=== PATIENT | male | born 1935 | race Caucasian/White ===

== ENCOUNTER → 2016-04-19 | Outpatient (CLI) | payer MEDICARE, OTHER ==
[~2016-04-19] MED LIST: ASPIRIN LO-DOSE81 MG PO; BYSTOLIC2.5 MG PO; CARAFATE1 GM PO; CARDURA2 MG PO; COLACE100 MG PO; COUMADIN ** IA5 MG PO; DEMADEX20 M1 PO; DOXYCYCLINE100 MG PO; FLOMAX0.4 MG PO; FLONASE 50 MCG/16 GM NOSE; GLUCOPHAGE500 MG PO; LIPITOR40 MG PO; MILK OF MA400 MG/5 M PO; NORCO 5-325 TA1 EACH PO; NORVASC2.5 MG PO; OXYGEN M-15 INH; PRILOSEC20 MG PO; TYLENOL EXTRA500 MG PO; ZANTAC (NON-FO150 MG PO; ZESTRIL2.5 MG PO; ZOFRAN4 MG PO; ZOLOFT100 MG PO
== END | disposition disaster alternative care site (69) ==
LOC: GRAD 10:07
DX: M54.9 Dorsalgia, unspecified (principal)

== ENCOUNTER 2016-05-05 17:24 | Emergency (ER) | payer MEDICARE, OTHER ==
--- NOTE | ~2016-05-05 | ER ---
PATIENT'S NAME: MILLICENT BOSWELL [facility] AGE: 81 Y [address] ROOM: [place] [address] LOCATION: ED ADMIT DATE: 05/05/2016 ER/Outpatient Report DISCHARGE DATE: 05/05/2016 FAMILY PHYSICIAN: Shad Prescott MD ATTENDING PHYSICIAN: Shad Bauer Time of Arrival: 1730 hours. Time of Exam: 1730 hours. CHIEF COMPLAINT: Heart fluttering, nausea, headache. HISTORY OF PRESENT ILLNESS: The patient states approximately 2-3 hours prior to arrival he was working in his garage when he developed a fluttering sensation of his heart and began feeling nauseated, has not vomited. States he just has a generalized headache. Does not have any chest pain with this, just feels like his heart is fluttering and not beating correct. Reports he has had a dry cough. Has been checking his blood pressure at home and has noted that it is a little bit higher than what it had been. He states that he saw a professional services consultant in March, wore a monitor for almost 2 weeks he states and at that time, he said everything checked out okay. He states they did an echocardiogram of his heart and that was all normal also. States last time he had this fluttering, it only lasted for about 3 days while he was wearing the monitor, then it stopped. According to his past medical history, he was having some PVCs when he felt the fluttering in the past. ALLERGIES: PENICILLIN AND DARVOCET. CURRENT MEDICATIONS: On his chart and reviewed by me. PAST MEDICAL HISTORY: Heart disease, DVT, kidney stone, and depression. PAST SURGERIES: Left shoulder surgery. SOCIAL HISTORY: He lives alone. He is . Denies use of tobacco, drugs, or alcohol. REVIEW OF SYSTEMS: All negative other than those mentioned in the HPI. PATIENT'S NAME: MILLICENT BOSWELL [facility] AGE: 81 Y [address] ROOM: [place] [address] LOCATION: [facility] ADMIT DATE: 05/05/2016 ER/Outpatient Report DISCHARGE DATE: 05/05/2016 FAMILY PHYSICIAN: Shad Prescott MD ATTENDING PHYSICIAN: Shad Bauer PHYSICAL EXAMINATION: VITAL SIGNS: He states he is 5 feet 7 inches. He weighed 112.4 kg. Blood pressure 168/68, pulse 52, respirations 16, temperature of 98.7, and O2 saturation 94% on room air. GENERAL: He is awake, alert, and oriented x4. SKIN: [place], warm, and dry. LUNGS: Respirations are even and nonlabored. Lung sounds are clear throughout. HEART: Regular rate and rhythm. It is bradycardic. ABDOMEN: Round, soft. Bowel sounds are present. No peripheral edema noted. EMERGENCY ROOM COURSE: Saline lock was initiated. Lab work was drawn. CBC is within normal limits. His INR was 2.1. He is on Coumadin. Chem panel: Sodium is 142, potassium is 3.8, chloride is 104, GFR is 49. Magnesium was 2. CPK is 40. CK-MB is 0.7. Troponin was less than 0.040. Free T4 was 0.9, TSH of 2.12. EKG shows sinus bradycardia, has poor R-wave progression. He was monitored. Vital signs remained stable. He was given Tylenol 1000 mg for the headache with minimal relief. CT of the head was completed, radiologist reports no acute findings. He remained in a sinus bessy/sinus rhythm. Repeat cardiac enzymes at 2 hours are negative. Repeat EKG is unchanged. IMPRESSION: Chest pain, fluttering. PLAN: Home. Rest. Continue his current medications. The patient was reviewed with Dr. Mccallum. I encouraged the patient to follow up with his professional services consultant within the next 2-3 days or his primary provider. He verbalized understanding. TAE COREAS APRN FOR MD LOPEZ HAUSER/jina /[id number] d: 05/06/162 t: 05/11/16 1232, OUTPATIENT REPORT
[~2016-05-05 17:24] MED LIST changes: -CARAFATE1 GM PO; -COLACE100 MG PO; -FLOMAX0.4 MG PO; -GLUCOPHAGE500 MG PO; -MILK OF MA400 MG/5 M PO; -NORCO 5-325 TA1 EACH PO; -OXYGEN M-15 INH; -PRILOSEC20 MG PO; -ZANTAC (NON-FO150 MG PO; -ZESTRIL2.5 MG PO
[2016-05-05 18:03] LABS: BASOPHIL # 0.1 K/uL (0.0-0.2); BASOPHIL % 0.7 %; EOSINOPHIL # 0.3 K/uL (0.0-0.5); EOSINOPHIL % 3.6 %; HEMATOCRIT 41.3 % (33.0-50.0); IMMATURE GRANULOCYTE % 0.3 %; LYMPHOCYTE # 1.7 K/uL (0.8-4.0); LYMPHOCYTE % 24.1 %; MCH 31.9 pg (27.0-34.0); MCHC 33.9 gm/dL (32.0-36.5); MCV 94.1 fl (83.0-98.0); MONOCYTE # 0.8 K/uL (0.0-1.0); MONOCYTE % 11.4 %; MPV 10.9 fl (9.4-12.4); NEUTROPHIL # (ANC) 4.1 K/uL (1.4-9.0); NEUTROPHIL % 59.9 %; NRBC % 0 /100WBC (0-0.00); PLATELET COUNT 125 K/uL (150-450); RBC 4.39 M/uL (3.50-5.50); RDW-CV 12.8 % (11.9-14.6); WBC 6.9 K/uL (4.0-11.0)
[2016-05-05 18:11] LABS: PTT 35 SECONDS (25-32)
[2016-05-05 18:13] LABS: INR - (THERAPEUTIC) 2.1 (0.9-1.1); PROTIME 23.7 SECONDS (9.6-11.1)
[2016-05-05 18:23] LABS: ALBUMIN 3.6 gm/dL (3.5-5.0); ALK PHOS 90 IU/L (33-138); ALT 27 IU/L (12-78); ANION GAP 12.8 (10.0-19.0); AST 22 IU/L (10-40); BLOOD UREA NITROGEN 24 mg/dL (6-24); CALCIUM 8.1 mg/dL (8.5-10.5); CHLORIDE 104 mMol/L (96-110); CO2 29 mMol/L (22-32); CPK 40 IU/L (35-332); CREATININE 1.4 mg/dL (0.6-1.3); ESTIMATED GFR (MDRD EQUATION) 49; POTASSIUM 3.8 mMol/L (3.7-5.1); SODIUM 142 mMol/L (135-145); TOTAL BILIRUBIN 0.4 mg/dL (0.0-1.5); TOTAL PROTEIN 6.5 g/dL (6.0-8.4)
[2016-05-05 20:14] LABS: CPK 38 IU/L (35-332)
[2016-05-28] MEDS ORDERED: OXYGEN M-15 INH (13:55)
[2016-05-28] MEDS ORDERED: PRILOSEC20 MG PO (14:08)
[2016-05-28] MEDS ORDERED: ZESTRIL2.5 MG PO (14:08)
[2016-05-28] MEDS ORDERED: ZANTAC (NON-FO150 MG PO (14:08)
[2016-05-28] MEDS ORDERED: GLUCOPHAGE500 MG PO (14:08)
[2016-09-03] MEDS ORDERED: CARAFATE1 GM PO (13:43)
[2016-09-03] MEDS ORDERED: ZOFRAN4 MG PO (13:43)
== END 2016-05-05 20:33 | disposition disaster alternative care site (69) ==
LOC: GMED 17:24
PROVIDERS: Nurse Practitioner Family
DX: I49.8 Other specified cardiac arrhythmias (principal); R07.9 Chest pain, unspecified; F32.9 Major depressive disorder, single episode, unspecified; Z88.0 Allergy status to penicillin; Z88.5 Allergy status to narcotic agent; Z86.718 Personal history of other venous thrombosis and embolism; Z87.442 Personal history of urinary calculi; Z98.890 Other specified postprocedural states; Z79.899 Other long term (current) drug therapy; Z79.82 Long term (current) use of aspirin; Z79.01 Long term (current) use of anticoagulants

== ENCOUNTER → 2016-05-19 | Outpatient (CLI) | payer MEDICARE, OTHER ==
[~2016-05-19] MED LIST changes: +CARAFATE1 GM PO; +COLACE100 MG PO; +FLOMAX0.4 MG PO; +GLUCOPHAGE500 MG PO; +MILK OF MA400 MG/5 M PO; +NORCO 5-325 TA1 EACH PO; +OXYGEN M-15 INH; +PRILOSEC20 MG PO; +ZANTAC (NON-FO150 MG PO; +ZESTRIL2.5 MG PO
== END | disposition disaster alternative care site (69) ==
LOC: LFPA 16:15
DX: R07.9 Chest pain, unspecified (principal)

== ENCOUNTER 2016-05-22 17:42 | Emergency (ER) | payer MEDICARE, OTHER ==
--- NOTE | ~2016-05-22 | ER ---
PATIENT'S NAME: MILLICENT BOSWELL [facility] AGE: 81 Y [address] ROOM: [place] [address] LOCATION: ED ADMIT DATE: 05/22/2016 ER/Outpatient Report DISCHARGE DATE: 05/22/2016 FAMILY PHYSICIAN: Shad Prescott MD ATTENDING PHYSICIAN: Shad Bauer Time of Arrival: 1742 hours. Time of Evaluation: 1743 hours. CHIEF COMPLAINT: Chest pain. HISTORY OF PRESENT ILLNESS: The patient is a pleasant 81-year-old male complaining of chest pain. He describes it as a buzzing in the left side of his chest wall like a cell phone in a shirt pocket for the last 6 days. He saw his regular doctor yesterday, but they found nothing at that time. He presents today because "I just could not take it anymore." He has been burping a sour sensation to the back of his mouth as well through the same time. The patient states the encounter with his physician yesterday. They did a full cardiac workup on him, and "even the EKG did not show anything." Activity today in general has been "sitting in a chair all day." The only other complaint he has is some sinus pressure headache, but he is being seen by an ENT tomorrow regarding that. Pertinent heart history includes a heart catheterization 5 to 6 years ago with multiple stents. Last stress test was 2 to [address] Irby. REVIEW OF SYSTEMS: All systems were reviewed by me and negative unless otherwise stated in the HPI. PAST MEDICAL HISTORY: Heart catheterization and stress testing secondary to coronary artery disease, DVT, kidney stones, and depression. PAST SURGERIES: Include left shoulder surgery. ALLERGIES: TO PENICILLIN AND DARVOCET. CURRENT MEDICATIONS: 1. Metformin 500 mg 2 times daily, that was recently started on 05/14/2016. 2. Bystolic 5 mg tablet, take 1 daily. 3. Coumadin 5 mg tablet, take 1-1/2 tablet orally. PATIENT'S NAME: MILLICENT BOSWELL [facility] AGE: 81 Y [address] ROOM: [place] [address] LOCATION: [facility] ADMIT DATE: 05/22/2016 ER/Outpatient Report DISCHARGE DATE: 05/22/2016 FAMILY PHYSICIAN: Shad Prescott MD ATTENDING PHYSICIAN: Shad Bauer 4. Torsemide 20 mg tablet, take one pill orally daily. 5. Doxazosin mesylate, take 1 tab by mouth daily. 6. Atorvastatin calcium 40 mg tablet, take 1 by mouth daily. 7. Aspirin low strength adult 81 mg tablet delayed release, take 1 tab by mouth daily. 8. Fluticasone propionate 50 mcg per actuator, take 2 sprays per naris daily. 9. Sertraline HCl 50 mg tablet, take 1 by mouth daily. SOCIAL HISTORY: He lives alone. He is . Denies use of alcohol, drugs, or tobacco. PHYSICAL EXAMINATION: VITAL SIGNS: Initially at 107.7 Kg, blood pressure 118/71, pulse 74, respirations 16 per minute, temperature 99.5 tympanically, SpO2 at 93% on room air. Carine score of 15. Describes pain as a 0/10. GENERAL: The patient is an obese male, in mild distress. He is relatively calm. Alert and oriented to person, place, and time. HEENT: Head is atraumatic and normocephalic. Eyes: Conjunctivae clear. No discharge. Pupils are PERRLA bilaterally. EOMFI bilaterally. No nystagmus. Throat with midline uvula. No exudates, erythema, or tonsillar hypertrophy. NECK: Supple and without lymphadenopathy. Trachea midline. No JVD. LUNGS: Clear to auscultation bilaterally. No crackles, wheezes, rhonchi, or stridor. Normal respiratory effort. HEART: Regular rate and rhythm. No S3, S4, or extra sounds. ABDOMEN: Technically difficult due to body habitus. Positive bowel sounds x4. Normal percussion. Soft, nontender, nondistended. No masses. Jose's negative bilaterally. LABORATORY DATA AND X-RAYS: CMS shows sodium 144, potassium 3.6, chloride 104, CO2 of 28, anion gap 15.6, glucose 125, calcium 8.4, BUN 38, creatinine 1.5. Total protein 6.8, albumin 3.6, globulin 3.2, A/G ratio of 1.1. Total bilirubin 0.4. Alkaline phosphatase 91, AST 19, ALT 23, GFR 45. Magnesium 1.8. Amylase 62, lipase 183. CPK 74, CK- MB 1.3. Troponin I less than 0.040. ProBNP 156. CBC shows white count at 6.2, red count 4.64, hemoglobin 14.6, hematocrit 44.0, MCV 94.8, MCH 31.5, MCHC 33.2, RDW 13.0, platelets 126, MPV 10.8. Auto diff as noted on the form. Results within normal limits. PTT 39, pro-time 32.6, INR therapeutic at 2.8. Two-hour repeat cardiac enzymes show CPK 92, CK-MB 1.2, and troponin I at 0.040. Initial EKG shows sinus rhythm with an old septal infarct, not significantly different from previous EKG. This was repeated 2 hours later to show sinus bradycardia with leftward axis, and poor R-wave progression. Chest x-ray shows cardiac silhouette accentuated by suboptimal inspiration. Linear atelectasis PATIENT'S NAME: MILLICENT BOSWELL [facility] AGE: 81 Y [address] ROOM: [place] [address] LOCATION: [facility] ADMIT DATE: 05/22/2016 ER/Outpatient Report DISCHARGE DATE: 05/22/2016 FAMILY PHYSICIAN: Shad Prescott MD ATTENDING PHYSICIAN: Shad Bauer and fibrosis are present at the left lung base. No focal infiltrate, pleural effusion, or pneumothorax identified at this time. Confirmed by Dr. Carias. ASSESSMENT: Epigastric pain, gastroesophageal reflux disease, and chest wall muscle spasm. PLAN: Provided the patient with a GI cocktail, which did away both with the sour sensation he was experiencing in the back of his throat as well as his headache. The fluttering in his anterior chest wall is most likely related with muscle spasm/tremor. Not classical chest pain. Tested negative on all cardiac measures at this time. We will discharge him home via private auto. The patient's son will drive him home. Advised him to follow up with his regular doctor within the next 2 to 3 days. The patient was agreeable to this. He left under improved status and in no acute distress. Take all medications as prescribed. Discussed med risks, side effects, and benefits in detail. Give plenty of rest and liquids. Take Tylenol or ibuprofen as directed for fever or discomfort unless allergic, asthmatic, or aspirin sensitive. Return to the emergency department or primary care provider if symptoms persist or worsen. All laboratory, radiology, and EKG testing that I discussed results with the patient and his son, present in the room. MARTELL DOMÍNGUEZ PA-C FOR MD SARITHA HAUSER/modl /[id number] d: 05/23/16 0028 t: 05/30/16 1005, OUTPATIENT REPORT
[~2016-05-22 17:42] MED LIST changes: -CARAFATE1 GM PO; -COLACE100 MG PO; -FLOMAX0.4 MG PO; -GLUCOPHAGE500 MG PO; -MILK OF MA400 MG/5 M PO; -NORCO 5-325 TA1 EACH PO; -OXYGEN M-15 INH; -PRILOSEC20 MG PO; -ZANTAC (NON-FO150 MG PO; -ZESTRIL2.5 MG PO
[2016-05-22 18:06] LABS: BASOPHIL % 0.6 %; EOSINOPHIL # 0.2 K/uL (0.0-0.5); EOSINOPHIL % 2.7 %; HEMOGLOBIN 14.6 g/dL (11.0-16.0); IMMATURE GRANULOCYTE % 0.2 %; LYMPHOCYTE # 1.8 K/uL (0.8-4.0); LYMPHOCYTE % 29.1 %; MCH 31.5 pg (27.0-34.0); MCHC 33.2 gm/dL (32.0-36.5); MCV 94.8 fl (83.0-98.0); MONOCYTE # 0.6 K/uL (0.0-1.0); MONOCYTE % 9.2 %; MPV 10.8 fl (9.4-12.4); NEUTROPHIL # (ANC) 3.6 K/uL (1.4-9.0); NEUTROPHIL % 58.2 %; NRBC % 0 /100WBC (0-0.00); PLATELET COUNT 126 K/uL (150-450); RBC 4.64 M/uL (3.50-5.50); WBC 6.2 K/uL (4.0-11.0)
[2016-05-22 18:16] LABS: INR - (THERAPEUTIC) 2.8 (0.9-1.1); PROTIME 32.6 SECONDS (9.6-11.1); PTT 39 SECONDS (25-32)
[2016-05-22 18:23] LABS: ALBUMIN 3.6 gm/dL (3.5-5.0); ALK PHOS 91 IU/L (33-138); ALT 23 IU/L (12-78); ANION GAP 15.6 (10.0-19.0); AST 19 IU/L (10-40); BLOOD UREA NITROGEN 38 mg/dL (6-24); CALCIUM 8.4 mg/dL (8.5-10.5); CHLORIDE 104 mMol/L (96-110); CO2 28 mMol/L (22-32); CPK 74 IU/L (35-332); CREATININE 1.5 mg/dL (0.6-1.3); ESTIMATED GFR (MDRD EQUATION) 45; MAGNESIUM 1.8 mg/dL (1.3-2.6); POTASSIUM 3.6 mMol/L (3.7-5.1); SODIUM 144 mMol/L (135-145); TOTAL BILIRUBIN 0.4 mg/dL (0.0-1.5); TOTAL PROTEIN 6.8 g/dL (6.0-8.4)
[2016-05-22 20:25] LABS: CPK 92 IU/L (35-332)
[2016-05-28] MEDS ORDERED: OXYGEN M-15 INH (13:55)
[2016-05-28] MEDS ORDERED: GLUCOPHAGE500 MG PO (14:08)
[2016-05-28] MEDS ORDERED: ZESTRIL2.5 MG PO (14:08)
[2016-05-28] MEDS ORDERED: PRILOSEC20 MG PO (14:08)
[2016-05-28] MEDS ORDERED: ZANTAC (NON-FO150 MG PO (14:08)
[2016-09-03] MEDS ORDERED: ZOFRAN4 MG PO (13:43)
[2016-09-03] MEDS ORDERED: CARAFATE1 GM PO (13:43)
== END 2016-05-22 20:28 | disposition disaster alternative care site (69) ==
LOC: GMED 17:42
PROVIDERS: Physician Assistant
DX: M62.838 Other muscle spasm (principal); R10.13 Epigastric pain; K21.9 Gastro-esophageal reflux disease without esophagitis; Z88.0 Allergy status to penicillin; Z88.8 Allergy status to other drugs, medicaments and biological substances

== ENCOUNTER → 2016-05-24 | Outpatient (CLI) | payer MEDICARE, OTHER ==
[~2016-05-24] MED LIST changes: +CARAFATE1 GM PO; +COLACE100 MG PO; +FLOMAX0.4 MG PO; +GLUCOPHAGE500 MG PO; +MILK OF MA400 MG/5 M PO; +NORCO 5-325 TA1 EACH PO; +OXYGEN M-15 INH; +PRILOSEC20 MG PO; +ZANTAC (NON-FO150 MG PO; +ZESTRIL2.5 MG PO
== END | disposition disaster alternative care site (69) ==
LOC: GRAD 11:00
DX: R51 Headache (principal); J34.2 Deviated nasal septum

== ENCOUNTER → 2016-05-28 | Outpatient (CLI) | payer MEDICARE, OTHER | END | disposition disaster alternative care site (69) | LOC: GOPD 12:30 → GRAD 13:19 | DX: K55.9 Vascular disorder of intestine, unspecified (principal); R19.7 Diarrhea, unspecified; R10.9 Unspecified abdominal pain; N26.1 Atrophy of kidney (terminal); K80.20 Calculus of gallbladder without cholecystitis without obstruction | CPT/HCPCS: J7060 ==

== ENCOUNTER → 2016-05-28 | Outpatient (CLI) | payer MEDICARE, OTHER | LOC: LFPA 11:59 | DX: R10.9 Unspecified abdominal pain (principal) | CPT/HCPCS: Q9967 ==

== ENCOUNTER 2016-06-01 06:40 | Day surgery (SDC) | payer MEDICARE, OTHER ==
[~2016-06-01] VITALS: Ht 172.7 cm; Wt 105.0 kg
--- NOTE | ~2016-06-01 | CON ---
PATIENT'S NAME: KURT BOSWELL [facility] AGE: 81 Y [address] ROOM: [place] [address] LOCATION: GEND ADMIT DATE: 06/01/2016 Consultation DISCHARGE DATE: FAMILY PHYSICIAN: KRISTAN ALONSO MD ATTENDING PHYSICIAN: Ilan Pimentel DATE OF CONSULTATION: 06/01/2016 CONSULTATION NOTE REQUESTING PHYSICIAN: Ilan Pimentel MD CHIEF COMPLAINT/REASON FOR CONSULTATION: Right upper quadrant abdominal pain with cholelithiasis. HISTORY OF PRESENT ILLNESS: Kurt is an 81-year-old gentleman who was previously seen by Dr. Monge at [facility] on 04/22/2016 for evaluation for cholelithiasis. At that time, the patient had complaints of lower abdominal pain, back pain, and pain that went down into his leg. He had occasional postprandial epigastric pain and sense of bloating. Dr. Monge reviewed over the patient's imaging studies that did show evidence for cholelithiasis. It was noted that the patient was on Coumadin and had a history of heart problems. Dr. Monge did offer removal of the gallbladder, but was concerned that it may not resolve all of his symptoms. The patient presented to [facility] today for an EGD with Dr. Pimentel. Dr. Pimentel felt that his symptoms today were more consistent with cholelithiasis and biliary colic. After completing the EGD, he consulted Dr. Beasley for consideration of laparoscopic cholecystectomy. Dr. Beasley evaluated the patient. At this time, the patient complains of a band-like tightness across his upper abdomen. He states that he has pain in that right upper quadrant. He states that if he tries to eat anything, he feels like it is going to come back up right away. The patient becomes emotional stating that he cannot live like this. The patient wants to proceed if possible. PAST MEDICAL HISTORY: ALLERGIES: PENICILLIN CAUSES ANAPHYLACTIC REACTION. PROPOXYPHENE CAUSES DIZZINESS. MEDICATIONS: Include: 1. Demadex 20 mg p.o. q.a.m. PATIENT'S NAME: KURT BOSWELL [facility] AGE: 81 Y [address] ROOM: [place] [address] LOCATION: GEND ADMIT DATE: 06/01/2016 Consultation DISCHARGE DATE: FAMILY PHYSICIAN: KRISTAN ALONSO MD ATTENDING PHYSICIAN: Ilan Pimentel 2. Lipitor 40 mg p.o. at bedtime. 3. Zoloft 50 mg p.o. b.i.d. 4. Coumadin 7.5 mg p.o. q. day which has been on hold. 5. Tylenol Extra Strength 1000 to 1500 mg p.o. q. 6-8 hours p.r.n. headache. 6. Flonase 2 sprays in the nose q. day. 7. Oxygen. ILLNESSES: Include: 1. Atrial fibrillation. 2. Bilateral lower extremity edema. 3. BPH. 4. Coronary artery disease. 5. Depression. 6. Diastolic heart failure. 7. Degenerative joint disease. 8. History of DVT. 9. Hypercholesterolemia. 10. Hypoxia. 11. History of ischemic colitis. 12. Neuropathy. 13. Renal insufficiency. 14. History of kidney stones. PAST SURGICAL HISTORY: Operations include: 1. Angioplasty in 1990 and 2008. 2. Cystoscopy in 2005. 3. Left shoulder rotator cuff, 2006. 4. Tonsillectomy and adenoidectomy. FAMILY HISTORY: Brother with type 2 diabetes. Father with myocardial infarction at the age of 52. SOCIAL HISTORY: The patient lives alone in [place]. He is a nondrinker, does not consume alcohol. REVIEW OF SYSTEMS: RESPIRATORY: The patient denies any recent upper respiratory infections. The patient states that he coughs to try to get the phlegm and what he is regurgitating up and out. Denies any shortness of breath. CARDIOVASCULAR: Denies any chest pain. He states that he recently had an appointment with his petroleum refinery laborer who gave him a clean bill of health. PATIENT'S NAME: KURT BOSWELL [facility] AGE: 81 Y [address] ROOM: [place] [address] LOCATION: [facility] ADMIT DATE: 06/01/2016 Consultation DISCHARGE DATE: FAMILY PHYSICIAN: KRISTAN ALONSO MD ATTENDING PHYSICIAN: Ilan Pimentel GASTROINTESTINAL: Per HPI. GENITOURINARY: The patient states that his urine stream is slow. PHYSICAL EXAMINATION: VITAL SIGNS: Per nursing sheet. GENERAL: An 81-year-old male who is alert, pleasant, cooperative, seen in [facility]. EYES, EARS, NOSE, AND THROAT: Grossly normal. LUNGS: Clear. HEART: Regular. ABDOMEN: Soft but very tender in the right upper quadrant with positive Miller sign. EXTREMITIES: The patient appears to move all extremities equally. LABORATORY DATA AND IMAGING STUDIES: Laboratory work: The patient had a renal panel yesterday at [facility] that showed a glucose of 128, BUN 26, and creatinine 1.3. Sodium 142, potassium 4.1, and chloride 95. Prothrombin time of 22.2. INR 1.8. On May 28, white blood cell count was 5.4, hemoglobin 14.6, and platelets are 109. CMS from May 28 showed liver function tests to be normal. Amylase 63, lipase 310. The patient had an abdominal ultrasound today that showed multiple small mobile gallstones seen in the gallbladder with no gallbladder wall thickening or pericholecystic fluid. There was no palpation tenderness over the gallbladder elicited by the ultrasound transducer. There was no intrahepatic or extrahepatic biliary dilatation seen. Common bile duct was within normal limits at 3 mm. Pancreas appeared normal. There was a cyst seen in the right liver lobe. CTA of the abdomen and pelvis done on May 28 showed no evidence of ischemic colitis. There was bilateral renal atrophy with cortical scarring. Cholelithiasis without inflammatory change was noted. Chest x-ray on May 28 showed no free air in the abdomen. Nonspecific bowel gas pattern. No vascular congestion or acute infiltration. CT of the abdomen and pelvis done in March 2016 was negative other than for cholelithiasis. ASSESSMENT: 1. An 81-year-old male with acute cholecystitis. 2. Coronary artery disease. 3. Atrial fibrillation. Currently off Coumadin. PLAN: Dr. Beasley reviewed over the imaging studies along with the clinical history with the patient. It now appears that the patient does have symptoms consistent with acute cholecystitis. He discussed the recommendations to proceed with removal of the gallbladder. Discussed laparoscopic with the PATIENT'S NAME: KURT BOSWELL [facility] AGE: 81 Y [address] ROOM: [place] [address] LOCATION: [facility] ADMIT DATE: 06/01/2016 Consultation DISCHARGE DATE: FAMILY PHYSICIAN: KRISTAN ALONSO MD ATTENDING PHYSICIAN: Ilan Pimentel A potential for an open procedure if needed. The risks of the procedure including risk of bleeding, infection, injury to other structures, heart problems, lung problems, etc, were discussed. I anticipate the patient will be ready for discharge either later today or tomorrow. Dr. Beasley also discussed with the patient that when the patient had previously seen Dr. Monge, his symptoms appeared to be more diffuse, but now seems more consistent with acute cholecystitis. The patient was in understanding and agreement and wanted to proceed with surgery as soon as possible. We will go ahead and plan on doing that this afternoon. Dr. Beasley did discuss this on the telephone with his sons. The patient will be asked to sign a consent for removal of the gallbladder. Levaquin has been ordered for preoperative antibiotic. Dr. Beasley evaluated the patient, was involved in the assessment and plan, and was available for supervision. KYARA LACY PA-C FOR MD BEN GIBSON/jina /[id number] d: 06/01/16 1543 t: 06/09/16 1701, CONSULTATION REPORT
--- NOTE | ~2016-06-01 | OR ---
PATIENT'S NAME: MILLICENT BOSWELL [facility] AGE: 81 Y [address] ROOM: [address] [address] [place] [facility] ADMIT DATE: 06/01/2016 OR/Procedure Report DISCHARGE DATE: FAMILY PHYSICIAN: KRISTAN ALONSO MD ATTENDING PHYSICIAN: Ilan Pimentel SURGEON: Carlos Beasley MD DEEP SUBMERGENCE VEHICLE CREWMEMBER: Toney Ivory PA-C. DATE OF PROCEDURE: 06/01/2016 PREOPERATIVE DIAGNOSIS: Acute cholelithiasis with cholecystitis. POSTOPERATIVE DIAGNOSIS: Acute cholelithiasis with cholecystitis. PROCEDURE: Laparoscopic cholecystectomy. FINDINGS: Gallstones were present and the gallbladder wall appeared inflamed. ESTIMATED BLOOD LOSS: 30 mL. COMPLICATIONS: None. INDICATIONS: The patient is an 81-year-old male who presented with abdominal pain, epigastrium and right upper quadrant. He had an EGD that was normal. Subsequently, he had an ultrasound that revealed gallstones. Because of his significant symptoms and tenderness in the right upper quadrant, we felt this was consistent with cholecystitis. We discussed cholecystectomy with the patient and the risks, benefits, and alternatives, and he elected to proceed. DESCRIPTION OF PROCEDURE: The patient was taken to the operating room, he was placed supine, he was given IV sedation, and subsequently intubated. His abdomen was prepped with ChloraPrep and sterilely draped. Local anesthetic was infiltrated just superior to the umbilicus. A transverse incision was created. The abdomen was elevated. Veress needle was inserted. Pneumoperitoneum was induced. Following this, a 5-mm trocar was inserted followed by insertion of the camera. There was no injury from initial trocar placement. Three more trocars were then positioned, an 11-mm epigastric and two 5-mm right subcostal ports. Skin overlying the peritoneum was first anesthetized prior to making these incisions. All 3 of these trocars were inserted under direct visualization. The gallbladder was grasped and was elevated. There were adhesions that had to be taken down both bluntly and with electrocautery. The gallbladder did appear slightly edematous. The infundibulum was grasped and retracted inferiorly and laterally to expose the Calot triangle. Cystic duct and artery were dissected around circumferentially. A critical window was able to be obtained. Both of these structures were then doubly clipped and divided. The gallbladder was then PATIENT'S NAME: MILLICENT BOSWELL [facility] AGE: 81 Y [address] ROOM: [address] [address] [place] [facility] ADMIT DATE: 06/01/2016 OR/Procedure Report DISCHARGE DATE: FAMILY PHYSICIAN: KRISTAN ALONSO MD ATTENDING PHYSICIAN: Ilan Pimentel removed from the liver bed using electrocautery. Again, the gallbladder had mild inflammatory changes, but was not as extensive as what was felt or should be by his physical exam. Again, the gallbladder was grasped, placed in an EndoCatch bag, and brought out through the epigastric port site. The liver bed was inspected and appeared hemostatic. Clips appeared to be in good position on the cystic duct and artery. The area was irrigated. It appeared hemostatic. The fluid was removed. There was stool in the colon due to intraabdominal fat, it made visualization more difficult, but no gross abnormality seen. The pneumoperitoneum was released. The trocars were removed. The trocar sites appeared hemostatic. The fascia of the epigastric port site was approximated with a 0 Vicryl suture followed by skin closure of all 4 port sites with 4-0 Monocryl suture. Steri-Strips and sterile dressings were placed. The patient was extubated and sent to recovery in good condition. MD ANGEL GIBSON/jina /[id number] d: 06/01/162055 t: 06/09/161657, OPERATIVE SUMMARY
[~2016-06-01 06:40] MED LIST changes: -CARAFATE1 GM PO; -COLACE100 MG PO; -FLOMAX0.4 MG PO; -MILK OF MA400 MG/5 M PO; -NORCO 5-325 TA1 EACH PO
[2016-06-01 13:00] LABS: INR - (THERAPEUTIC) 1.44 (0.92-1.07); PROTIME 15.2 SECONDS (9.8-11.4)
--- NOTE | 2016-06-01 13:57 | NUR ---
1000 PT TO RADIOLOGY FOR US OF ABDOMEN 1035 PT RETURNED FROM US 1115 DR VELASCO IN TO SEE PT AND THEY DISCUSSED THE FINDING OF THE US OF ABDOMEN. PT WANT TO HAVE HIS GALLBLADDER REMOVED TODAY AND STATES THIS TO DR VELASCO. 1200 MAKING ARRANGEMENT TO HAVE DR VALENTINE SEE THE PATIENT REGARDING SURGERY PT HAD REMAINED NPO TODAY. ARRANGEMENTS MADE FOR PT TO HAVE LAP JOSE TODAY PT'S HAS KEPT HIS FAMILY AND FRIENDS INFORMED OF THE PLAN FOR TODAY. BROTHER JEREMIAS HAS BEEN HERE WITH THE PT SINCE APPROX. 11:30. PT TO SURGERY FOLLOWING THE PROPER PROCEDURE FOR GETTING THE PATIENT AND PAPERWORK READY FOR SURGERY
--- NOTE | 2016-06-02 04:39 | NUR ---
Significant Event: Patient had a Lap Charlene yesterday afternoon. Arrived to the floor at 1800. Lap sites x 4 clean dry and intact. Clear liquid diet tolerated well. Regular diet for breakfast. IV to L) hand SL. Patient is on 3.5L O2 at night. [place] for abdomen discomfort given at 2140. Patient ambulated in hallway before bed, no c/o. Ambulates well with SBA, walker, gait belt. Follow up: Possible D/C home today. Patient son is adelina, coming from [place].
[2016-06-02 06:13] LABS: HEMATOCRIT 41.7 % (33.0-50.0); HEMOGLOBIN 13.6 g/dL (11.0-16.0); MCH 31.3 pg (27.0-34.0); MCHC 32.6 gm/dL (32.0-36.5); MCV 96.1 fl (83.0-98.0); MPV 10.9 fl (9.4-12.4); RBC 4.34 M/uL (3.50-5.50); RDW-CV 12.8 % (11.9-14.6); WBC 7.5 K/uL (4.0-11.0)
[2016-06-02 06:18] LABS: ALBUMIN 3.1 gm/dL (3.5-5.0)
[2016-06-02 06:37] LABS: ANION GAP 9.4 (10.0-19.0); CALCIUM 8.3 mg/dL (8.5-10.5); CREATININE 1.3 mg/dL (0.6-1.3); POTASSIUM 4.4 mMol/L (3.7-5.1); TOTAL PROTEIN 5.9 g/dL (6.0-8.4)
--- NOTE | 2016-06-02 12:14 | NUR ---
Significant event: Patient is alert and oriented x3. VSS. on room air. IV was accidently pulled out sometime early this morning. Got the okay to just remove the IV line and not have to replace. Patient ambulated in hallway x2 this morning. Took shower. States pain is alot better after passing gas and ambulating. Plans to go home this afternoon after Dr Melvin sees.
[2016-06-02] MEDS ORDERED: COLACE100 MG PO (13:05)
[2016-06-02] MEDS ORDERED: MILK OF MA400 MG/5 M PO (13:05)
[2016-06-02] MEDS ORDERED: NORCO 5-325 TA1 EACH PO (13:07)
[2016-06-02] MEDS ORDERED: FLOMAX0.4 MG PO (13:07)
--- NOTE | 2016-06-02 13:37 | NUR ---
D:Orders received for patient to be dismissed. I:Dismissal instructions were prepared and reviewed with the patient and his son by the virtual nurse using the computer technology. The following information was reviewed: diet and activity recommendations for home, dressing and incisional care for home, s/s of infection to monitor for and to report to MD if any occur, home medications/new prescription medications, and plans for follow up appointment with Dr. Beasley in 2 weeks. Branden teaching given to and reviewed with the patient on the following topics: Discharge Instructions for Lap Charlene, [place], Flomax, Milk of Magnesia, Colace and Preventing DVT's. R: The patient verbalized understanding of above teaching and denied further questions at the time. P:The patient's primary nurse, Ruthy RICK, was informed that the dismissal teaching had been completed. The paperwork/prescriptions will be given to the patient. The patient will be dismissed later this afternoon. Raegan RICK
[2016-09-03] MEDS ORDERED: ZOFRAN4 MG PO (13:43)
[2016-09-03] MEDS ORDERED: CARAFATE1 GM PO (13:43)
== END 2016-06-02 14:30 | disposition disaster alternative care site (69) ==
LOC: GMSU 06:40 → GEND 06:40 → GOPP 07:00 → GMSU 18:12 → GEND 06-02 14:30
PROVIDERS: Internal Medicine Gastroenterology; Physician Assistant; Surgery
PROC: 0DJ08ZZ Inspection of Upper Intestinal Tract, Via Natural or Artificial Opening Endoscopic (ICD-10-PCS; principal; 2016-06-01)
PROC: 0FT44ZZ Resection of Gallbladder, Percutaneous Endoscopic Approach (ICD-10-PCS; 2016-06-01)
DX: K81.1 Chronic cholecystitis (principal); K29.80 Duodenitis without bleeding; I50.30 Unspecified diastolic (congestive) heart failure; I25.10 Atherosclerotic heart disease of native coronary artery without angina pectoris; I48.0 Paroxysmal atrial fibrillation; I49.3 Ventricular premature depolarization; F32.9 Major depressive disorder, single episode, unspecified; E78.5 Hyperlipidemia, unspecified; E78.00 Pure hypercholesterolemia, unspecified; R09.02 Hypoxemia; N28.9 Disorder of kidney and ureter, unspecified; E66.09 Other obesity due to excess calories; Z68.35 Body mass index [BMI] 35.0-35.9, adult; Z87.442 Personal history of urinary calculi; Z98.890 Other specified postprocedural states; Z88.0 Allergy status to penicillin; Z88.8 Allergy status to other drugs, medicaments and biological substances; Z79.01 Long term (current) use of anticoagulants; Z79.899 Other long term (current) drug therapy
CPT/HCPCS: J1956; J2405; J7030; J7120

== ENCOUNTER → 2016-09-06 | Day surgery (SDC) | payer MEDICARE, OTHER ==
[~2016-09-06] VITALS: Ht 172.7 cm; Wt 105.9 kg
[~2016-09-06] MED LIST changes: +CARAFATE1 GM PO; +COLACE100 MG PO; +FLOMAX0.4 MG PO; +MILK OF MA400 MG/5 M PO; +NORCO 5-325 TA1 EACH PO
== END | disposition disaster alternative care site (69) ==
LOC: GPOC 09-03 15:00 → GEND 06:59
PROC: 0DB68ZX Excision of Stomach, Via Natural or Artificial Opening Endoscopic, Diagnostic (ICD-10-PCS; principal; 2016-09-06)
PROC: 0DB98ZX Excision of Duodenum, Via Natural or Artificial Opening Endoscopic, Diagnostic (ICD-10-PCS; 2016-09-06)
DX: K31.89 Other diseases of stomach and duodenum (principal); M19.90 Unspecified osteoarthritis, unspecified site; K21.9 Gastro-esophageal reflux disease without esophagitis; F32.9 Major depressive disorder, single episode, unspecified; I25.10 Atherosclerotic heart disease of native coronary artery without angina pectoris; E78.00 Pure hypercholesterolemia, unspecified; I25.2 Old myocardial infarction; I48.91 Unspecified atrial fibrillation; I11.0 Hypertensive heart disease with heart failure; I50.32 Chronic diastolic (congestive) heart failure; E78.5 Hyperlipidemia, unspecified; E11.9 Type 2 diabetes mellitus without complications; E66.01 Morbid (severe) obesity due to excess calories; G43.019 Migraine without aura, intractable, without status migrainosus; Z68.35 Body mass index [BMI] 35.0-35.9, adult; Z85.828 Personal history of other malignant neoplasm of skin; Z98.890 Other specified postprocedural states; Z98.41 Cataract extraction status, right eye; Z98.42 Cataract extraction status, left eye; Z90.49 Acquired absence of other specified parts of digestive tract; Z88.0 Allergy status to penicillin; Z88.8 Allergy status to other drugs, medicaments and biological substances
CPT/HCPCS: J2001; J7030

== ENCOUNTER → 2016-10-18 | Outpatient (CLI) | payer MEDICARE, OTHER | END | disposition disaster alternative care site (69) | LOC: GRAD 15:37 | DX: R10.9 Unspecified abdominal pain (principal); N28.9 Disorder of kidney and ureter, unspecified ==